=== PATIENT | female | born 1985 | race Caucasian/White ===

== ENCOUNTER 2016-11-18 08:51 | Emergency (ER) | payer MEDICAID ==
[~2016-11-18] VITALS: Ht 157.5 cm; Wt 67.5 kg
[~2016-11-18 08:51] MED LIST: CIPR500T4 PO; HYDR-3498 PO; PRENAT PO
[2016-11-18 08:53] VITALS: Ht 157.5 cm; Wt 67.5 kg
--- NOTE | 2016-11-18 09:52 | ERD ---
ER Documentation Chief Complaint Date/Time DATE: 11/18/16 TIME: 09:47 Chief Complaint itchy and watery eyes x 4 days HPI A 31-year-old female who presents the emergency department today complaining of bilateral eye redness and itchiness and watery eyes for the past 4 days. States that she has used some [id number]-kuqhthw remedy. States she also has a runny nose. Denies any blurred vision, fevers or chills he denies any foreign body. ROS All systems reviewed and are negative except as per history of present illness. Medications Home Meds Active Scripts Diphenhydramine Hcl* (Benadryl*) 25 Mg Cap, 25 MG PO Q6, #30 CAP Prov:KRISTA MARTÍNEZ PA-C 11/18/16 Cetirizine Hcl* (Zyrtec*) 10 Mg Capsule, 10 MG PO DAILY, #14 TAB.CHEW Prov:KRISTA MARTÍNEZ PA-C 11/18/16 Ketotifen Fumarate (ZADITOR) 5 Ml Drops, 5 ML OP BID, #1 BOTTLE Prov:KRISTA MARTÍNEZ PA-C 11/18/16 Ciprofloxacin Hcl* (Ciprofloxacin Hcl*) 500 Mg Tablet, 500 MG PO BID for 7 Days , TAB Prov:SAVI MARIE PA-C 01/01/15 Hydrocodone Bit-Acetaminophen* ([place]*) 5-325 Mg Tab, 1 TAB PO Q6 Y for PAIN, # 20 TAB Prov:SAVI MARIE PA-C 01/01/15 Reported Medications Multivit/Min/Fol Ac/Iron/Pren* ( S*) 1 Tab Tab, 1 TAB PO DAILY, TAB 08/16/13 Allergies Allergies: Coded Allergies: No Known Allergy (Unverified , 02/04/12) PMhx/Soc Hx Alcohol Use: No Hx Substance Use: No Hx Tobacco Use: No Physical Exam Vitals Vital Signs Date Time Temp Pulse Resp B/P Pulse Ox O2 Delivery O2 Flow Rate FiO2 11/18/16 08:53 97.8 63 18 133/71 100 Physical Exam Const: NAD Head: Atraumatic Eyes: BiLateral conjunctival erythema with clear drainage PERRLA. EOM intact. ENT: Normal External Ears, Nose and Mouth. Her nasal drainage. Neck: Full range of motion..~ No meningismus. Resp: Clear to auscultation bilaterally Cardio: Regular rate and rhythm, no murmurs Skin: No petechiae or rashes Neur: Awake and alert Psych: Normal Mood and Affect Procedures/MDM This is a 31-year-old female who presents the emergency department today for bilateral eye redness, itchiness and watery eyes for the past 4-5 days. Patient showed me that she had been using some [id number] remedy for " stye relief" here there is no evidence of hordeolum or chalazion at this time. I did do a visual acuity Visual acuity right 20/40 left 20/40 Bilateral 20/30 Symptoms at this time is consistent with allergic conjunctivitis. Patient will be given a prescription for Zaditor, Benadryl and Zyrtec Patient is afebrile and otherwise well-appearing. She has no pain with extraocular movement. She is nontender orbits. No purulent drainage. Low suspicion for arterial conjunctivitis, orbital cellulitis, preseptal cellulitis , infraorbital cellulitis, acute narrow angle glaucoma, corneal abrasion, globe rupture, hyphema. At this time the patient is stable for discharge and outpatient management. Patient should follow up with their PCP in the next 1-2 days. They may return to the emergency department sooner for any persistent or worsening of symptoms. Patient understood and agreed with the plan. Departure Diagnosis: Primary Impression: Eye problem Condition: KRISTA Perea PA-C Nov 18, 2016 09:51
[2016-11-18] MEDS ORDERED: CETI10CA PO (09:53)
[2016-11-18] MEDS ORDERED: KETO5DRO71 OP (09:53)
[2016-11-18] MEDS ORDERED: BEN25 PO (09:54)
== END 2016-11-18 10:27 | disposition home or self-care (01) ==
LOC: FTE 08:51
DX: H10.9 Unspecified conjunctivitis (principal)
CPT/HCPCS: 99283

== ENCOUNTER 2016-12-18 08:37 | Emergency (ER) | payer MEDICAID ==
[~2016-12-18] VITALS: Wt 69.0 kg
[~2016-12-18 08:37] MED LIST changes: +BEN25 PO; +CETI10CA PO; +KETO5DRO71 OP
--- NOTE | 2016-12-18 09:03 | ERD ---
ER Documentation Chief Complaint Chief Complaint r. flank pain, dysuria HPI 31-year-old female, previously healthy, presents to the emergency department, complaining of 3 days with dysuria, frequency, and mild hematuria. No history of recurrent UTIs. The patient denies fevers, chills, nausea or vomiting. She refers mild sharp lower back pain, 5 out of 10. Treatment attempted: None ROS SYSTEMIC symptoms: No fever, no chills, no night sweats EYE symptoms: No eyesight problems. OTOLARYNGEAL symptoms: No hearing loss. CARDIOVASCULAR symptoms: No chest pain or discomfort, no palpitations. PULMONARY symptoms: No dyspnea, no cough, no wheezing. GASTROINTESTINAL symptoms: No abdominal pain, no nausea, no vomiting SKIN no rashes MUSCULOSKELETAL symptoms: No arthralgias, no muscle aches. NEUROLOGY symptoms: No headache, no confusion, no syncope, no numbness or tingling. All systems reviewed and are negative except as per history of present illness. Medications Home Meds Active Scripts Ibuprofen* (Motrin*) 600 Mg Tab, 600 MG PO Q8, #30 TAB Prov:ERNA VUONG MD 12/18/16 Sulfamethoxazole/Trimethoprim* (Bactrim Ds* Tablet) 1 Each Tablet, 1 TAB PO BID for 3 Days, #6 TAB Prov:ERNA VUONG MD 12/18/16 Diphenhydramine Hcl* (Benadryl*) 25 Mg Cap, 25 MG PO Q6, #30 CAP Prov:KRISTA MARTÍNEZ PA-C 11/18/16 Cetirizine Hcl* (Zyrtec*) 10 Mg Capsule, 10 MG PO DAILY, #14 TAB.CHEW Prov:KRISTA MARTÍNEZ PA-C 11/18/16 Ketotifen Fumarate (ZADITOR) 5 Ml Drops, 5 ML OP BID, #1 BOTTLE Prov:KRISTA MARTÍNEZ PA-C 11/18/16 Ciprofloxacin Hcl* (Ciprofloxacin Hcl*) 500 Mg Tablet, 500 MG PO BID for 7 Days , TAB Prov:SAVI MARIE PA-C 01/01/15 Hydrocodone Bit-Acetaminophen* ([place]*) 5-325 Mg Tab, 1 TAB PO Q6 Y for PAIN, # 20 TAB Prov:SAVI MARIE PA-C 01/01/15 Reported Medications Multivit/Min/Fol Ac/Iron/Pren* ( S*) 1 Tab Tab, 1 TAB PO DAILY, TAB 08/16/13 Allergies Allergies: Coded Allergies: No Known Allergy (Unverified , 02/04/12) PMhx/Soc Hx Alcohol Use: No Hx Substance Use: No Hx Tobacco Use: No Physical Exam Vitals Vital Signs Date Time Temp Pulse Resp B/P Pulse Ox O2 Delivery O2 Flow Rate FiO2 12/18/16 08:40 96.8 70 20 135/60 100 Physical Exam Patient is in no acute distress, vital signs stable. Alert and fully oriented. EYES: PERRLA, EOMI, Sclera and conjunctiva appear normal. EARS: Canals clear, tympanic membranes WNL THROAT: Normal oropharynx. NECK: Supple, No lymphadenopathy. Full ROM without pain or tenderness. HEART: RRR, no rubs, murmurs, clicks or gallops. LUNGS: Clear to auscultation. ABDOMEN: Soft, non-tender without masses or hepatosplenomegaly. No CVA tenderness EXTREMITIES: No edema bilaterally. MUSC: Full ROM, no deformity, normal back exam Results 24 hrs Laboratory Tests Test 12/18/16 09:22 Urine Color YELLOW Urine Clarity CLEAR Urine pH 5.0 Urine Specific [place] 1.006 Urine Ketones NEGATIVEmg/dL Urine Nitrite NEGATIVEmg/dL Urine Bilirubin NEGATIVEmg/dL Urine Urobilinogen NEGATIVEmg/dL Urine Leukocyte Esterase NEGATIVELeu/ul Urine Microscopic RBC 0/HPF Urine Microscopic WBC 0/HPF Urine Bacteria FEW/HPF Urine Hemoglobin 1+mg/dL Urine Glucose NEGATIVEmg/dL Urine Total Protein NEGATIVEmg/dl Urine Test NEGATIVE Procedures/MDM 31-year-old female presents with dysuria and back pain. Physical exam unremarkable, vital signs are stable. Clinical presentation consistent with acute cystitis we will discharge the patient home with a prescription for 3 days of antibiotics. Have prescriptions filled and follow precisely the directions on the label. Follow-up with primary care provider during the next 4 days and bring all the information and medications prescribed. If illness has not improved in 2 days, then make an appointment with primary care provider. If the provider is unavailable, return to the Emergency Department immediately. Departure Diagnosis: Primary Impression: Back pain Additional Impression: Acute cystitis Condition: Stable Patient Instructions: Back Pain (Acute Or Chronic), Bladder Infection, Cystitis Vs. Pyelo (Child) Additional Instructions: Muchas dian por [facility] para vaca servicio. Esperamos que en vaca visita a la michael de emergencia vaca problema medico haya sido solucionado y que se sienta mucho mejor. Para estar seguros que vaca mejoria sigue en proceso, le pedimos el favor de hacer carol serenity de seguimiento medico con vaca doctor primario en los proximos 2-4 marie. Lleve con usted estos documentos y las medicinas recetadas. Si silvio sintomas empeoran y no puede simba a vaca doctor, por favor regrese a michael de emergencia. AL-ERNA SYED MD Dec 18, 2016 09:03
[2016-12-18 09:39] LABS: ADD UMIC YES; UR ASCORBIC ACID NEGATIVE (NEGATIVE); UR BACTERIA FEW /HPF (NONE SEEN); UR BILIRUBIN (Dip) NEGATIVE (NEGATIVE); UR BLOOD (Dip) 1+ mg/dL (NEGATIVE); UR CLARITY CLEAR (CLEAR); UR COLOR YELLOW (YELLOW); UR GLUCOSE (Dip) NEGATIVE (NEGATIVE); UR KETONES (Dip) NEGATIVE (NEGATIVE); UR LEUKOCYTE ESTERASE (Dip) NEGATIVE Leu/ul (NEGATIVE); UR NITRITE (Dip) NEGATIVE (NEGATIVE); UR RBC 0 /HPF (0-5); UR SPECIFIC GRAVITY (Dip) 1.006 (1.003-1.030); UR TOTAL PROTEIN (Dip) NEGATIVE (NEGATIVE); UR UROBILINOGEN (Dip) NEGATIVE (NEGATIVE)
[2016-12-18] MEDS ORDERED: IBUP-1542 PO (09:59)
[2016-12-18] MEDS ORDERED: SULF1TAB31 PO (09:59)
== END 2016-12-18 10:09 | disposition home or self-care (01) ==
LOC: FTE 08:37
DX: N30.00 Acute cystitis without hematuria (principal)
CPT/HCPCS: 81001; 84703; Z7502; 99283